=== PATIENT | female | born 1955 | race Caucasian/White ===

== ENCOUNTER 2018-10-22 09:08 | Day surgery (SDC) | payer MEDICARE, OTHER ==
[~2018-10-22] VITALS: Ht 149.9 cm; Wt 130.4 kg
[~2018-10-22 09:08] MED LIST: BUPIVACAINE HCL/PF 0.5% 30 ML VIAL ONE; CeFAZolin 2 GM/DEXTROSE 50 ML IV ONE; HYDR25TA PO; LIDOCAINE 2%/EPI 1:200,000/PF 20 ML VIAL ONE; METF-960 PO; RINGERS SOLUTION,LACTATED 1,000 ML IV ONE
[2018-10-22] MEDS ORDERED: FentaNYL CITRATE-PF 100 MCG/2 ML VIAL IVP ONE (09:09)
[2018-10-22] MEDS ORDERED: LIDOCAINE/PF 2% 5 ML VIAL IM ONE (09:09)
[2018-10-22] MEDS ORDERED: PROPOFOL 1% 20 ML VIAL IVP ONE (09:09)
[2018-10-22] MEDS ORDERED: MIDAZOLAM HCL 2 MG/2 ML VIAL IVP ONE (09:09)
[2018-10-22] MEDS ORDERED: RINGERS SOLUTION,LACTATED 1,000 ML IV ONE (09:30)
[2018-10-22 10:16] LABS: BASOPHILS % (AUTO) 0.4 % (0.0-2.0); EOSINOPHILS % (AUTO) 4.3 % (1.0-6.0); HEMATOCRIT 43.7 % (36-46); HEMOGLOBIN 14.5 g/dL (12.0-16.0); LYMPHOCYTES # (AUTO) 2.4 K/uL (1.0-4.8); LYMPHOCYTES % (AUTO) 33.9 % (22.0-44.0); MEAN CORPUSCULAR HEMOGLOBIN 29.9 pg (26.0-34.0); MEAN CORPUSCULAR HGB CONC 33.3 G/dL (31.0-37.0); MEAN CORPUSCULAR VOLUME 90 fL (80-100); MONOCYTES # (AUTO) 0.5 K/uL (0.1-1.0); MONOCYTES % (AUTO) 7.2 % (2.0-9.0); NEUTROPHILS # (AUTO) 3.8 K/uL (1.8-7.7); NEUTROPHILS % (AUTO) 54.2 % (40.0-70.0); PLATELET COUNT (AUTO) 265 K/uL (150-450); RED BLOOD CELL COUNT(AUTO) 4.87 MIL/uL (4.00-5.20); RED CELL DISTRIBUTION WIDTH 13.8 % (11.5-14.5)
[2018-10-22 10:25] LABS: CALCIUM, TOTAL 9.5 mg/dL (8.8-10.5); CREATININE 1.04 mg/dL (0.60-1.30); POTASSIUM 3.8 mmol/L (3.5-5.1)
[2018-10-22 10:30] LABS: ALBUMIN 3.3 g/dL (3.4-5.0); BILIRUBIN,TOTAL 0.7 mg/dL (0.1-1.0); TOTAL PROTEIN, SERUM 8.1 g/dL (6.4-8.2)
[2018-10-22] MEDS ORDERED: VANCOMYCIN HCL 1 GM/VIAL ONE (12:07)
[2018-10-22] MEDS ORDERED: CEFUROXIME SODIUM 1.5 GM in DEXTROSE 5%-WATER 50 ML IV ONE (12:15)
[2018-10-22] MEDS ORDERED: IBUPROFEN 800 MG TABLET PO PRN (13:30)
[2018-10-22] MEDS ORDERED: ACETAMINOPHEN 500 MG TABLET PO PRN (13:30)
[2018-10-22 13:48] LABS: GLUCOMETER DEV NAME(LOC) PACU.; GLUCOSE,POINT OF CARE 114 MG/DL (70-110)
== END 2018-10-22 15:00 | disposition home or self-care (01) ==
LOC: SURGERY 09:08
PROVIDERS: ATTEND Surgery
DX: L04.2 Acute lymphadenitis of upper limb (principal); N60.12 Diffuse cystic mastopathy of left breast; I10 Essential (primary) hypertension; E11.9 Type 2 diabetes mellitus without complications; Z79.82 Long term (current) use of aspirin; Z79.899 Other long term (current) drug therapy; Z82.49 Family history of ischemic heart disease and other diseases of the circulatory system
CPT/HCPCS: 36415; 38525; 80053; 82962; 85025; 87015; 87101; 87206; 87556; 88305; 88312; 93005; J0690; J0697; J2250; J2704; J3010; J3370; J3490 ×2; J7060; J7120